=== PATIENT | female | born 1965 | race Caucasian/White ===

== ENCOUNTER → 2016-10-13 | Outpatient (REF) | payer BC ==
[2016-10-13 12:26] LABS: BASO % 0.6 % (0.0-1.0); EOS # 0.1 K/mm3 (0.0-0.50); EOS % 2.3 % (0.0-3.0); LARGE UNSTAINED CELL # 0.1 K/mm3 (0.0-0.4); LARGE UNSTAINED CELL % 2.3 % (0.0-4.0); LYMPH # 1.8 K/mm3 (1.5-4.5); LYMPH % 31.1 % (24.0-44.0); MEAN CORPUSCULAR HEMOGLOBIN 32.7 pg (27.0-33.0); MEAN CORPUSCULAR HGB CONC 34.3 g/dl (32.0-36.5); MEAN CORPUSCULAR VOLUME 95.3 fl (80.0-96.0); MONO # 0.4 K/mm3 (0.0-0.8); NEUTROPHILS % 55.7 % (36.0-66.0); PLATELET COUNT, AUTOMATED 168 k/mm3 (150-450); RED CELL DISTRIBUTION WIDTH 12.6 % (11.5-14.5); WHITE BLOOD COUNT 5.3 K/mm3 (4.0-10.0)
== END ==
LOC: M SFHCPLAZ 08:07
PROVIDERS: ATTEND Nurse Practitioner Family
DX: R58 Hemorrhage, not elsewhere classified (principal); D50.9 Iron deficiency anemia, unspecified

== ENCOUNTER → 2017-01-16 | Day surgery (SDC) | payer BC ==
[~2017-01-16] VITALS: Ht 170.2 cm; Wt 88.9 kg
[~2017-01-16] MED LIST: AMIT10TA PO; BUPIVACAINE HCL 0.5% 30 ML VIAL As Ordered ONE; CALC600T31 PO; CYMB1CAP5 PO; GABA600T PO; IRON65TA PO; LIDOCAINE 1% MDV 20ML VIAL As Ordered ONE; LIDOCAINE 2% INJ 100 MG/5 ML SDV (FOR ANES.) As Ordered ONE; LORA10TA2 PO; LR 1,000 ML IV ONE; METH75TA PO; MIDAZOLAM INJ 2 MG/2 ML VIAL (J2250) As Ordered ONE; MULT1TAB19 PO; OMEP40CA2 PO; ONDANSETRON 4MG/2ML VIAL (J2405) As Ordered ONE; POTA99TA PO; PROPOFOL 200 MG/20 ML VIAL As Ordered ONE; TRAM50TA2 PO; VITA100067 PO; VITA100T20 PO; VITA500C24 PO; dexameTHASONE 4 MG/ML 1ML VIAL (J1100) As Ordered ONE; fentaNYL 100 MCG/2 ML INJECTION (J3010) As Ordered ONE
[2017-01-16 14:50] VITALS: BP 120/76
--- NOTE | 2017-01-17 08:22 | RO ---
DATE OF PROCEDURE: 01/16/2017 PREPROCEDURE DIAGNOSIS: Left foot plantar fasciitis. POSTPROCEDURE DIAGNOSIS: Left foot plantar fasciitis. PROCEDURE: Left foot endoscopic plantar fascia release. SURGEON: Clay Cannon DPM BOTTOM TURNING LATHE TURNER: None. HEMOSTASIS: Ankle tourniquet. MATERIALS: #4-0 Nylon. ANESTHESIA: Monitored anesthesia care with preoperative injection of 13 mL of 1:1 mixture of 1% lidocaine plain and 0.5% Marcaine plain. ESTIMATED BLOOD LOSS: Minimal. INJECTABLE: 1 mL Decadron 4 mg/mL. COMPLICATIONS: None. CONDITION: Stable. Dayanna Horn is a 51-year-old female who presented to [facility] with complaints of painful plantar fasciitis to her left foot. She has tried numerous conservative therapies without relief. She presents today for surgical correction. The patient side and site were identified and marked in the preoperative holding area. Consent was reviewed and obtained. All risks, complications and alternatives to the procedure were explained to the patient's in detail and all questions were answered. DESCRIPTION OF PROCEDURE: The patient was brought to the operating room and placed on the operating room table in supine position. Monitored anesthesia care was delivered by the anesthesia team. Preoperative injection of 13 mL of 1:1 mixture of 1% lidocaine plain and 0.5% Marcaine plain were injected to the left foot. The left foot was prepped and draped in a normal sterile fashion. Tourniquet was applied to the left ankle and inflated to 250 mmHg. Incision was made at the medial heel with #15 blade. Hemostat was used to create and plane for the trocar. The trocar and cannula were inserted from medial to lateral and a small stab incision was made to the lateral heel creating the lateral portal. Trocar was removed. The cannula was cleaned with cotton applicator. The camera was inserted into the lateral portal. Plantar fascia was visualized and released using the Endotrac blade two-thirds of the way across medial to lateral. The lateral one-third was left intact. Site was irrigated with normal saline. Cannula was removed. #4-0 Nylon was used to close the incisions. Sterile dressings were applied. Tourniquet was deflated. The patient was brought to post anesthesia care unit (PACU) with vital signs stable and neurovascular status intact. She will be weightbearing as tolerated in postoperative shoe. She will followup in the office in two days.
== END | disposition home or self-care (01) ==
LOC: M SDC 10:54
PROVIDERS: ATTEND Podiatrist Foot & Ankle Surgery
DX: M72.2 Plantar fascial fibromatosis (principal); M54.5 Low back pain; G89.29 Other chronic pain; E11.9 Type 2 diabetes mellitus without complications; F32.9 Major depressive disorder, single episode, unspecified; K21.9 Gastro-esophageal reflux disease without esophagitis; E78.5 Hyperlipidemia, unspecified; D50.9 Iron deficiency anemia, unspecified; E66.9 Obesity, unspecified; M79.7 Fibromyalgia; M47.812 Spondylosis without myelopathy or radiculopathy, cervical region; Z88.5 Allergy status to narcotic agent; Z79.899 Other long term (current) drug therapy; Z98.84 Bariatric surgery status; Z98.1 Arthrodesis status; Z98.51 Tubal ligation status; Z78.0 Asymptomatic menopausal state
CPT/HCPCS: 29893; J0690; J1100; J2250; J2405; J3010

== ENCOUNTER → 2017-07-18 | Outpatient (REF) | payer BC, MEDICARE ==
[2017-07-18 11:28] LABS: BASO % 0.6 % (0.0-1.0); EOS # 0.1 10^3/uL (0.0-0.50); EOS % 2.4 % (0.0-3.0); HEMATOCRIT 43.6 % (36.0-47.0); HEMOGLOBIN 14.8 g/dl (12.0-16.0); IMMATURE GRANULOCYTE % 0.2 % (0-0); LYMPH # 1.6 10^3/uL (1.5-4.5); LYMPH % 33.8 % (24.0-44.0); MEAN CORPUSCULAR HEMOGLOBIN 32.1 pg (27.0-33.0); MEAN CORPUSCULAR HGB CONC 33.9 g/dl (32.0-36.5); MEAN CORPUSCULAR VOLUME 94.6 fl (80.0-96.0); MONO # 0.5 10^3/uL (0.0-0.8); NEUTROPHILS # 2.5 10^3/uL (1.8-7.7); PLATELET COUNT, AUTOMATED 210 10^3/uL (150-450); RED BLOOD COUNT 4.61 10^6/uL (4.00-5.40); RED CELL DISTRIBUTION WIDTH 11.9 % (11.5-14.5); WHITE BLOOD COUNT 4.6 10^3/uL (4.0-10.0)
[2017-07-18 12:01] LABS: ESTIMATED AVERAGE GLUCOSE 123 MG/DL (60-110); HEMOGLOBIN A1c 5.9 %
[2017-07-18 12:08] LABS: ALBUMIN 4.1 GM/DL (3.2-5.2); ALBUMIN/GLOBULIN RATIO 1.46 (1.00-1.93); ALKALINE PHOSPHATASE 85 U/L (45-117); ALT/SGPT 28 U/L (12-78); ANION GAP 6 MEQ/L (8-16); AST/SGOT 16 U/L (7-37); BILIRUBIN,TOTAL 0.4 MG/DL (0.2-1.0); BLOOD UREA NITROGEN 14 MG/DL (7-18); CALCIUM LEVEL 9.1 MG/DL (8.5-10.1); CARBON DIOXIDE LEVEL 31 MEQ/L (21-32); CHLORIDE LEVEL 106 MEQ/L (98-107); CHOLESTEROL LEVEL 225 MG/DL (<200); CHOLESTEROL RISK RATIO 3.688 (<5); CREATININE FOR GFR 0.63 MG/DL (0.55-1.02); GLOMERULAR FILTRATION RATE > 60.0 (>51); GLUCOSE, FASTING 108 MG/DL (70-105); HDL CHOLESTEROL 61 MG/DL (>40); IRON (FE) 132 UG/DL (50-170); NON-HDL-C 164 MG/DL; POTASSIUM SERUM 4.2 MEQ/L (3.5-5.1); SODIUM LEVEL 143 MEQ/L (136-145); TOTAL PROTEIN 6.9 GM/DL (6.4-8.2); TRIGLYCERIDES LEVEL 85 MG/DL (<150)
== END ==
LOC: M SFHCCLAY 09:28
DX: D50.9 Iron deficiency anemia, unspecified (principal); E11.9 Type 2 diabetes mellitus without complications; I10 Essential (primary) hypertension; N76.0 Acute vaginitis; Z12.4 Encounter for screening for malignant neoplasm of cervix
CPT/HCPCS: 83540

== ENCOUNTER → 2017-08-15 | Outpatient (REF) | payer BC, MEDICARE | LOC: M SFHCCLAY 13:33 | DX: Z11.59 Encounter for screening for other viral diseases (principal) | CPT/HCPCS: 86803 ==

== ENCOUNTER → 2018-03-27 | Outpatient (REF) | payer BC, MEDICARE | LOC: M SFHCCLAY 13:43 | DX: R39.15 Urgency of urination (principal) | CPT/HCPCS: 87088; 87186 ==

== ENCOUNTER → 2018-08-15 | Outpatient (REF) | payer MEDICARE, BC ==
[~2018-08-15] MED LIST changes: -BUPIVACAINE HCL 0.5% 30 ML VIAL As Ordered ONE; -GABA600T PO; +GABA600T4 PO; -LIDOCAINE 1% MDV 20ML VIAL As Ordered ONE; -LIDOCAINE 2% INJ 100 MG/5 ML SDV (FOR ANES.) As Ordered ONE; +LORA-243 PO; -LORA10TA2 PO; -LR 1,000 ML IV ONE; -MIDAZOLAM INJ 2 MG/2 ML VIAL (J2250) As Ordered ONE; -ONDANSETRON 4MG/2ML VIAL (J2405) As Ordered ONE; -PROPOFOL 200 MG/20 ML VIAL As Ordered ONE; -dexameTHASONE 4 MG/ML 1ML VIAL (J1100) As Ordered ONE; -fentaNYL 100 MCG/2 ML INJECTION (J3010) As Ordered ONE
[2018-08-15 11:39] LABS: BASO % 0.4 % (0.0-1.0); EOS # 0.2 10^3/uL (0.0-0.50); EOS % 2.8 % (0.0-3.0); HEMATOCRIT 43.2 % (36.0-47.0); HEMOGLOBIN 14.5 g/dl (12.0-15.5); LYMPH # 1.7 10^3/uL (1.5-4.5); LYMPH % 32.9 % (24.0-44.0); MEAN CORPUSCULAR HEMOGLOBIN 31.9 pg (27.0-33.0); MEAN CORPUSCULAR HGB CONC 33.6 g/dl (32.0-36.5); MEAN CORPUSCULAR VOLUME 94.9 fl (80.0-96.0); MONO # 0.5 10^3/uL (0.0-0.8); MONO % 9.6 % (0.0-5.0); NEUTROPHILS # 2.9 10^3/uL (1.8-7.7); NEUTROPHILS % 54.1 % (36.0-66.0); PLATELET COUNT, AUTOMATED 176 10^3/uL (150-450); RED BLOOD COUNT 4.55 10^6/uL (4.00-5.40); WHITE BLOOD COUNT 5.3 10^3/uL (4.0-10.0)
[2018-08-15 12:12] LABS: ALT/SGPT 25 U/L (12-78); BILIRUBIN,TOTAL 0.5 MG/DL (0.2-1.0); BLOOD UREA NITROGEN 17 MG/DL (7-18); CARBON DIOXIDE LEVEL 27 MEQ/L (21-32); CHLORIDE LEVEL 107 MEQ/L (98-107); CHOLESTEROL LEVEL 200 MG/DL (<200); CHOLESTEROL RISK RATIO 3.508 (<5); CREATININE FOR GFR 0.66 MG/DL (0.55-1.30); GLOMERULAR FILTRATION RATE > 60.0 (>51); GLUCOSE, FASTING 127 MG/DL (70-100); HDL CHOLESTEROL 57 MG/DL (>40); LDL CHOLESTEROL 127 MG/DL (<100); NON-HDL-C 143 MG/DL; POTASSIUM SERUM 4.2 MEQ/L (3.5-5.1); SODIUM LEVEL 142 MEQ/L (136-145); TOTAL PROTEIN 6.6 GM/DL (6.4-8.2); TRIGLYCERIDES LEVEL 82 MG/DL (<150)
[2018-08-15 12:43] LABS: HEMOGLOBIN A1c 6.1 %
[2018-08-15 16:26] LABS: APPEARANCE, URINE CLOUDY (CLEAR); BACTERIA, URINE AUTO NEGATIVE (NEGATIVE); BILIRUBIN, URINE AUTO 2+ (NEGATIVE); BLOOD, URINE BLOOD NEGATIVE (NEGATIVE); CALCIUM OXALATE CRYSTALS MODERATE; COLOR, URINE AMBER (YELLOW); GLUCOSE, URINE (UA) AUTO NEGATIVE (NEGATIVE); KETONE, URINE AUTO NEGATIVE (NEGATIVE); LEUKOCYTE ESTERASE, URINE AUTO TRACE (NEGATIVE); MUCUS, URINE SMALL (NEGATIVE); NITRITE, URINE AUTO NEGATIVE (NEGATIVE); PROTEIN, URINE AUTO NEGATIVE (NEGATIVE); RBC, URINE AUTO 0 /HPF (0-3); SPECIFIC GRAVITY URINE AUTO 1.031 (1.002-1.035); SQUAMOUS EPITHELIAL CELL UR AU 9 /HPF (0-6); WBC, URINE AUTO 5 /HPF (0-3)
== END ==
LOC: M SFHCCLAY 09:02
PROVIDERS: ATTEND Nurse Practitioner Family
DX: E11.9 Type 2 diabetes mellitus without complications (principal); I10 Essential (primary) hypertension

== ENCOUNTER → 2019-03-19 | Outpatient (REF) | payer MEDICARE, BC ==
[~2019-03-19] MED LIST changes: +METH750T2 PO; -METH75TA PO; -VITA100T20 PO; +VITA100T51 PO
[2019-03-19 18:29] LABS: BASO % 0.8 % (0.0-1.0); EOS # 0.1 10^3/uL (0.0-0.5); EOS % 2.3 % (0.0-3.0); HEMATOCRIT 43.7 % (36.0-47.0); HEMOGLOBIN 14.7 g/dl (12.0-15.5); LYMPH # 1.6 10^3/uL (1.5-5.0); LYMPH % 31.5 % (24.0-44.0); MEAN CORPUSCULAR HEMOGLOBIN 32.8 pg (27.0-33.0); MEAN CORPUSCULAR HGB CONC 33.6 g/dl (32.0-36.5); MEAN CORPUSCULAR VOLUME 97.5 fl (80.0-96.0); MONO # 0.5 10^3/uL (0.0-0.8); MONO % 9.3 % (0.0-5.0); NEUTROPHILS # 2.9 10^3/uL (1.5-8.5); NEUTROPHILS % 55.7 % (36.0-66.0); PLATELET COUNT, AUTOMATED 201 10^3/uL (150-450); RED BLOOD COUNT 4.48 10^6/uL (4.00-5.40); WHITE BLOOD COUNT 5.2 10^3/uL (4.0-10.0)
[2019-03-19 18:39] LABS: ALBUMIN 4.1 GM/DL (3.2-5.2); ALT/SGPT 21 U/L (12-78); BILIRUBIN,TOTAL 0.5 MG/DL (0.2-1.0); BLOOD UREA NITROGEN 16 MG/DL (7-18); CALCIUM LEVEL 9.3 MG/DL (8.5-10.1); CARBON DIOXIDE LEVEL 26 MEQ/L (21-32); CHLORIDE LEVEL 108 MEQ/L (98-107); CHOLESTEROL LEVEL 196 MG/DL (<200); CHOLESTEROL RISK RATIO 3.266 (<5); CREATININE FOR GFR 0.61 MG/DL (0.55-1.30); GLOMERULAR FILTRATION RATE > 60.0 (>51); GLUCOSE, FASTING 108 MG/DL (70-100); HDL CHOLESTEROL 60 MG/DL (>40); LDL CHOLESTEROL 118 MG/DL (<100); NON-HDL-C 136 MG/DL; POTASSIUM SERUM 4.3 MEQ/L (3.5-5.1); SODIUM LEVEL 142 MEQ/L (136-145); TOTAL PROTEIN 6.9 GM/DL (6.4-8.2); TRIGLYCERIDES LEVEL 90 MG/DL (<150)
[2019-03-19 19:30] LABS: HEMOGLOBIN A1c 5.8 %
== END ==
LOC: M SFHCCLAY 09:27
PROVIDERS: ATTEND Nurse Practitioner Family
DX: E11.9 Type 2 diabetes mellitus without complications (principal); I10 Essential (primary) hypertension; M54.9 Dorsalgia, unspecified
CPT/HCPCS: 80053; 80061; 83036; 85025; G0463

== ENCOUNTER → 2020-02-19 | Outpatient (REF) | payer MEDICARE, BC ==
[~2020-02-19] MED LIST changes: -OMEP40CA2 PO; +OMEP40CA97 PO
[2020-03-22 11:53] LABS: MUMPS VIRUS IgG ANTIBODY SEE SEPARATE REPORT (NEGATIVE); RUBEOLA IgG ANTIBODY SEE SEPARATE REPORT
== END ==
LOC: M SFHCCLAY 09:44
PROVIDERS: ATTEND Nurse Practitioner Family
DX: Z01.84 Encounter for antibody response examination (principal)

== ENCOUNTER → 2021-05-03 | Outpatient (REF) | payer MEDICARE, BC ==
[~2021-05-03] MED LIST changes: -AMIT10TA PO; +AMIT10TA7 PO; +METH-1165 PO; -METH750T2 PO; +OMEP40CA4 PO; -OMEP40CA97 PO
== END ==
LOC: M SFHCCLAY 11:41
PROVIDERS: ATTEND Nurse Practitioner Family
DX: Z01.419 Encounter for gynecological examination (general) (routine) without abnormal findings (principal)

== ENCOUNTER → 2021-07-14 | Outpatient (CLI) | payer MEDICARE, BC ==
--- NOTE | 2021-07-14 10:47 | REP ---
INDICATION: R50.9, FEVER COMPARISON: None. TECHNIQUE: PA and lateral. FINDINGS: The mediastinum and cardiac silhouette are normal. Are relatively clear. However, a very subtle area of opacity in the retrocardiac/medial left lower lobe cannot be excluded and should be correlated with auscultation. No effusion. No pneumothorax. Skeletal structures demonstrate chronic scoliosis and degenerative changes. IMPRESSION: Cannot exclude very subtle medial left lower lobe airspace disease. Clinical correlation is recommended. No focal consolidation or effusion. <Electronically signed by Tyree Florez > 07/14/21 [id number]
== END ==
LOC: M CLY 10:21
PROVIDERS: ATTEND Physician Assistant
DX: R50.9 Fever, unspecified (principal)

== ENCOUNTER → 2021-10-12 | Outpatient (REF) | payer MEDICARE, BC ==
[2021-10-12 12:45] LABS: BASO % 0.5 % (0.0-1.0); EOS # 0.2 10^3/uL (0.0-0.5); EOS % 2.2 % (0.0-3.0); HEMATOCRIT 42.5 % (36.0-47.0); HEMOGLOBIN 14.1 g/dl (12.0-15.5); LYMPH # 1.8 10^3/uL (1.5-5.0); LYMPH % 23.2 % (24.0-44.0); MEAN CORPUSCULAR HEMOGLOBIN 31.1 pg (27.0-33.0); MEAN CORPUSCULAR HGB CONC 33.2 g/dl (32.0-36.5); MEAN CORPUSCULAR VOLUME 93.6 fl (80.0-96.0); MONO # 0.7 10^3/uL (0.0-0.8); MONO % 9.1 % (2.0-8.0); NEUTROPHILS % 64.7 % (36.0-66.0); PLATELET COUNT, AUTOMATED 217 10^3/uL (150-450); RED BLOOD COUNT 4.54 10^6/uL (4.00-5.40); WHITE BLOOD COUNT 7.7 10^3/uL (4.0-10.0)
[2021-10-12 13:18] LABS: HEMOGLOBIN A1c 6.3 %
[2021-10-12 13:30] LABS: ALT/SGPT 33 U/L (12-78); BILIRUBIN,TOTAL 0.3 MG/DL (0.2-1.0); BLOOD UREA NITROGEN 12 MG/DL (7-18); CALCIUM LEVEL 9.6 MG/DL (8.5-10.1); CARBON DIOXIDE LEVEL 30 MEQ/L (21-32); CHLORIDE LEVEL 109 MEQ/L (98-107); CHOLESTEROL LEVEL 233 MG/DL (<200); CREATININE FOR GFR 0.77 MG/DL (0.55-1.30); FREE T4 0.92 NG/DL (0.76-1.46); GLOMERULAR FILTRATION RATE > 60.0 (>51); GLUCOSE, FASTING 144 MG/DL (70-100); HDL CHOLESTEROL 56 MG/DL (>40); LDL CHOLESTEROL 148 MG/DL (<100); NON-HDL-C 177 MG/DL; POTASSIUM SERUM 4.7 MEQ/L (3.5-5.1); SODIUM LEVEL 141 MEQ/L (136-145); TRIGLYCERIDES LEVEL 144 MG/DL (<150)
== END ==
LOC: M SFHCCLAY 08:05
PROVIDERS: ATTEND Nurse Practitioner Family
DX: D50.9 Iron deficiency anemia, unspecified (principal); E11.9 Type 2 diabetes mellitus without complications; I10 Essential (primary) hypertension
CPT/HCPCS: 80053; 80061; 83036; 84439; 84443; 85025; G0463

== ENCOUNTER → 2021-11-04 | Outpatient (REF) | payer MEDICARE, BC | LOC: M SFHCCLAY 14:44 | PROVIDERS: ATTEND Nurse Practitioner Family | DX: R30.0 Dysuria (principal) ==

== ENCOUNTER → 2021-11-16 | Outpatient (CLI) | payer MEDICARE, BC | LOC: M SOG 08:02 | PROVIDERS: ATTEND Physician Assistant | DX: M25.532 Pain in left wrist (principal) ==

== ENCOUNTER → 2022-01-02 | Outpatient (CLI) | payer MEDICARE, BC ==
[~2022-01-02] MED LIST changes: +CYAN500T14 PO; +MELO15TA28 PO; +VITA-243 PO; +VITA100093 PO; +VITMTA PO
== END ==
LOC: M LABSMTC 10:43
PROVIDERS: ATTEND Anesthesiology
DX: Z01.812 Encounter for preprocedural laboratory examination (principal); Z20.822 Contact with and (suspected) exposure to COVID-19

== ENCOUNTER 2022-01-05 08:52 | Day surgery (SDC) | payer MEDICARE, BC ==
[~2022-01-05] VITALS: Ht 170.2 cm; Wt 106.5 kg
[~2022-01-05 08:52] MED LIST changes: +LIDOCAINE W/EPINEPHRINE 1% 20ML VIAL XX ONE; +SODIUM BICARBONATE 8.4% INJ 50MEQ 50 ML VIAL XX ONE
[2022-01-05] MEDS ORDERED: TRAM50TA2 PO (12:00)
[2022-01-05 12:05] VITALS: BP 130/85
== END 2022-01-05 12:05 | disposition home or self-care (01) ==
LOC: M SDC 08:52
PROVIDERS: ATTEND Orthopaedic Surgery Hand Surgery
DX: M65.4 Radial styloid tenosynovitis [de Quervain] (principal); J45.909 Unspecified asthma, uncomplicated; K21.9 Gastro-esophageal reflux disease without esophagitis; M79.7 Fibromyalgia; F41.9 Anxiety disorder, unspecified; F32.A Depression, unspecified; Z87.891 Personal history of nicotine dependence; Z88.5 Allergy status to narcotic agent; Z79.899 Other long term (current) drug therapy

== ENCOUNTER → 2022-01-26 | Outpatient (CLI) | payer MEDICARE, BC ==
[~2022-01-26] MED LIST changes: -LIDOCAINE W/EPINEPHRINE 1% 20ML VIAL XX ONE; -SODIUM BICARBONATE 8.4% INJ 50MEQ 50 ML VIAL XX ONE
== END ==
LOC: M SOG 08:07
PROVIDERS: ATTEND Orthopaedic Surgery Adult Reconstructive Orthopaedic Surgery
DX: M25.551 Pain in right hip (principal); M16.11 Unilateral primary osteoarthritis, right hip; Z98.1 Arthrodesis status

== ENCOUNTER → 2022-04-01 | Outpatient (CLI) | payer MEDICARE, BC, OTHER ==
[~2022-04-01] MED LIST changes: +BUPIVACAINE HCL 0.5% 30ML VIAL As Ordered ONE; +ISOVUE-300 61% 50ML VIAL As Ordered ONE; +LIDOCAINE 1% MDV 20ML VIAL As Ordered ONE; +methylPREDNISolone 80MG/ML SUSP 1ML VIAL (J1040) As Ordered ONE
== END ==
LOC: M RAD 10:44
PROVIDERS: ATTEND Orthopaedic Surgery Adult Reconstructive Orthopaedic Surgery
DX: M25.851 Other specified joint disorders, right hip (principal)
CPT/HCPCS: 20610; 76000; J1040; Q9967

== ENCOUNTER → 2022-08-15 | Outpatient (REF) | payer BC, OTHER ==
[~2022-08-15] MED LIST changes: -BUPIVACAINE HCL 0.5% 30ML VIAL As Ordered ONE; -ISOVUE-300 61% 50ML VIAL As Ordered ONE; -LIDOCAINE 1% MDV 20ML VIAL As Ordered ONE; -methylPREDNISolone 80MG/ML SUSP 1ML VIAL (J1040) As Ordered ONE
[2022-08-15 17:37] LABS: BASO % 0.6 % (0.0-1.0); EOS # 0.2 10^3/uL (0.0-0.5); EOS % 3.1 % (0.0-3.0); HEMOGLOBIN 13.7 g/dl (12.0-15.5); LYMPH # 2.2 10^3/uL (1.5-5.0); LYMPH % 31.1 % (24.0-44.0); MEAN CORPUSCULAR HEMOGLOBIN 31.3 pg (27.0-33.0); MEAN CORPUSCULAR HGB CONC 32.6 g/dl (32.0-36.5); MEAN CORPUSCULAR VOLUME 95.9 fl (80.0-96.0); MONO # 0.8 10^3/uL (0.0-0.8); MONO % 11.3 % (2.0-8.0); NEUTROPHILS # 3.8 10^3/uL (1.5-8.5); NEUTROPHILS % 53.6 % (36.0-66.0); PLATELET COUNT, AUTOMATED 224 10^3/uL (150-450); RED BLOOD COUNT 4.38 10^6/uL (4.00-5.40); WHITE BLOOD COUNT 7.1 10^3/uL (4.0-10.0)
[2022-08-15 17:54] LABS: ALKALINE PHOSPHATASE 91 U/L (46-116); ALT/SGPT 21 U/L (7.0-40); AST/SGOT 21 U/L (<34); BILIRUBIN,TOTAL 0.2 MG/DL (0.3-1.2); BLOOD UREA NITROGEN 22 MG/DL (9-23); CALCIUM LEVEL 9.4 MG/DL (8.5-10.1); CARBON DIOXIDE LEVEL 30 MMOL/L (20-31); CHLORIDE LEVEL 105 MMOL/L (98-107); CHOLESTEROL LEVEL 208 MG/DL (<200); CREATININE FOR GFR 0.58 MG/DL (0.55-1.30); GLOMERULAR FILTRATION RATE > 60.0 (>51); GLUCOSE, FASTING 91 MG/DL (60-100); HDL CHOLESTEROL 56.2 MG/DL (>40); IRON (FE) 64 UG/DL (50-170); LDL CHOLESTEROL 121.4 MG/DL (<100); NON-HDL-C 152 MG/DL; POTASSIUM SERUM 5.2 MMOL/L (3.5-5.1); SODIUM LEVEL 140 MMOL/L (136-145); THYROID STIMULATING HORMONE 2.024 uIU/ML (0.55-4.78); TOTAL PROTEIN 6.9 G/DL (5.7-8.2); TRIGLYCERIDES LEVEL 152 MG/DL (<150)
[2022-08-15 17:55] LABS: FREE T4 1.02 NG/DL (0.89-1.76); VITAMIN B12 LEVEL 631 PG/ML (211-911)
[2022-08-15 17:56] LABS: FOLATE 21.23 NG/ML (>5.4)
== END ==
LOC: M SFHCCLAY 14:20
PROVIDERS: ATTEND Nurse Practitioner Family
DX: E11.9 Type 2 diabetes mellitus without complications (principal); D50.9 Iron deficiency anemia, unspecified; I10 Essential (primary) hypertension; N39.0 Urinary tract infection, site not specified; E66.01 Morbid (severe) obesity due to excess calories; Z68.38 Body mass index [BMI] 38.0-38.9, adult; R25.2 Cramp and spasm

== ENCOUNTER → 2022-08-19 | Outpatient (CLI) | payer BC, OTHER | LOC: M PLAIMG 13:13 | PROVIDERS: ATTEND Orthopaedic Surgery Adult Reconstructive Orthopaedic Surgery | DX: M16.31 Unilateral osteoarthritis resulting from hip dysplasia, right hip (principal) ==

== ENCOUNTER → 2022-11-06 | Outpatient (REF) | payer BC, OTHER | LOC: M LAB REF 08:19 | PROVIDERS: ATTEND Physician Assistant Medical | DX: J02.9 Acute pharyngitis, unspecified (principal) ==

== ENCOUNTER → 2023-03-30 | Outpatient (CLI) | payer OTHER, BC ==
[2023-03-30 14:48] LABS: BASO # 0.1 10^3/uL (0.0-0.2); BASO % 0.8 % (0.0-1.0); EOS # 0.2 10^3/uL (0.0-0.5); EOS % 2.5 % (0.0-3.0); HEMATOCRIT 40.6 % (36.0-47.0); HEMOGLOBIN 13.6 g/dl (12.0-15.5); LYMPH % 31.3 % (24.0-44.0); MEAN CORPUSCULAR HEMOGLOBIN 31.4 pg (27.0-33.0); MEAN CORPUSCULAR HGB CONC 33.5 g/dl (32.0-36.5); MEAN CORPUSCULAR VOLUME 93.8 fl (80.0-96.0); MONO # 0.7 10^3/uL (0.0-0.8); MONO % 10.8 % (2.0-8.0); NEUTROPHILS # 3.4 10^3/uL (1.5-8.5); NEUTROPHILS % 54.3 % (36.0-66.0); PLATELET COUNT, AUTOMATED 210 10^3/uL (150-450); RED BLOOD COUNT 4.33 10^6/uL (4.00-5.40); WHITE BLOOD COUNT 6.3 10^3/uL (4.0-10.0)
[2023-03-30 15:15] LABS: ALBUMIN 3.9 G/DL (3.2-5.2); ALKALINE PHOSPHATASE 92 U/L (46-116); ALT/SGPT 23 U/L (7.0-40); AST/SGOT 15 U/L (<34); BILIRUBIN,TOTAL 0.2 MG/DL (0.3-1.2); BLOOD UREA NITROGEN 17 MG/DL (9-23); CALCIUM LEVEL 9.1 MG/DL (8.5-10.1); CARBON DIOXIDE LEVEL 28 MMOL/L (20-31); CHLORIDE LEVEL 107 MMOL/L (98-107); CREATININE FOR GFR 0.53 MG/DL (0.55-1.30); GLOMERULAR FILTRATION RATE > 60.0 (>51); GLUCOSE, FASTING 115 MG/DL (60-100); POTASSIUM SERUM 4.3 MMOL/L (3.5-5.1); SODIUM LEVEL 140 MMOL/L (136-145); TOTAL PROTEIN 6.7 G/DL (5.7-8.2)
[2023-03-30 15:18] LABS: TOTAL 25(OH) VITAMIN D 28.8 NG/ML (20.0-100.0)
[2023-03-30 15:45] LABS: HEMOGLOBIN A1c 5.9 % (4.0-6.0)
== END ==
LOC: M LAB 14:16
PROVIDERS: ATTEND Orthopaedic Surgery
DX: M16.11 Unilateral primary osteoarthritis, right hip (principal); Z79.899 Other long term (current) drug therapy; M25.551 Pain in right hip

== ENCOUNTER → 2023-03-30 | Outpatient (CLI) | payer MEDICARE, BC | LOC: M SOG 09:11 | PROVIDERS: ATTEND Orthopaedic Surgery | DX: M25.551 Pain in right hip (principal); M16.11 Unilateral primary osteoarthritis, right hip ==

== ENCOUNTER → 2023-04-21 | Outpatient (CLI) | payer OTHER, BC | LOC: M SOG 07:51 | PROVIDERS: ATTEND Orthopaedic Surgery | DX: M54.50 Low back pain, unspecified (principal); M16.11 Unilateral primary osteoarthritis, right hip; M41.85 Other forms of scoliosis, thoracolumbar region; M46.06 Spinal enthesopathy, lumbar region ==

== ENCOUNTER 2023-04-27 10:25 | Outpatient (RCR) | payer OTHER, BC ==
[2023-05-05] MEDS ORDERED: PRENTAB53 PO (11:06)
[2023-05-05] MEDS ORDERED: ALBU8.5H (11:10)
== END 2023-05-09 ==
LOC: M PT 10:25
PROVIDERS: ATTEND Orthopaedic Surgery
DX: M16.11 Unilateral primary osteoarthritis, right hip (principal)

== ENCOUNTER → 2023-05-11 | Outpatient (CLI) | payer OTHER, BC ==
[~2023-05-11] MED LIST changes: +ALBU8.5H; +PRENTAB53 PO
== END ==
LOC: M RAD 15:41
PROVIDERS: ATTEND Orthopaedic Surgery
DX: M16.11 Unilateral primary osteoarthritis, right hip (principal)

== ENCOUNTER 2023-05-16 09:15 | Observation (INO) | payer OTHER, BC ==
[~2023-05-16] VITALS: Ht 167.6 cm; Wt 108.0 kg
[~2023-05-16 09:15] MED LIST changes: -ALBU8.5H; +ALBU8.5H INH; +ROPIVA 100MG/KETOR 15MG/EPINEPHRINE 0.3MG IN NS 50ML SYRINGE PA ONE; +TRANEXAMIC ACID INJection 1,000 MG in NS 100 ML IV ONE; +ceFAZolin SOD 2 GM in IV 1 EA IV ONE
[2023-05-16] MEDS ORDERED: OMEP40CA5 PO (10:12)
[2023-05-16] MEDS ORDERED: VITA100093 PO (10:12)
[2023-05-16] MEDS ORDERED: MUPI2OI NARES (10:12)
[2023-05-16] MEDS ORDERED: DULO30CA9 PO (10:12)
[2023-05-16] MEDS ORDERED: MELO15TA28 PO (10:12)
[2023-05-16] MEDS ORDERED: DULO60CA35 PO (10:12)
[2023-05-16] MEDS ORDERED: LORA-931 PO (10:12)
[2023-05-16] MEDS ORDERED: C 50TAB PO (10:12)
[2023-05-16] MEDS ORDERED: HOME MED LIST COMPLETE! XX SCH (10:15)
[2023-05-16] MEDS ORDERED: TRANEXAMIC ACID 100 MG/ML 10ML VIAL As Ordered ONE (12:23)
[2023-05-16] MEDS ORDERED: VANCOMYCIN 1000MG/20ML VIAL As Ordered ONE (12:23)
[2023-05-16] MEDS ORDERED: SUGAMMADEX SODIUM 500 MG/5 ML VIAL (BRIDION) As Ordered ONE (12:49)
[2023-05-16] MEDS ORDERED: METOCLOPRAMIDE INJ 10MG/2ML VIAL As Ordered ONE (12:49)
[2023-05-16] MEDS ORDERED: LIDOCAINE 2% 100MG/5ML SDV (FOR ANES.) As Ordered ONE ×2 (12:49→16:43)
[2023-05-16] MEDS ORDERED: propofoL 200 MG/20 ML VIAL As Ordered ONE (12:49)
[2023-05-16] MEDS ORDERED: MIDAZOLAM INJ 2MG/2ML VIAL As Ordered ONE ×2 (12:49→16:55)
[2023-05-16] MEDS ORDERED: dexmedeTOMIDine (4MCG/ML)200MCG/50ML BTL (PRECEDEX) As Ordered ONE (12:49)
[2023-05-16] MEDS ORDERED: ROCURONIUM BROMIDE 50MG/5ML VIAL As Ordered ONE ×4 (12:49→16:43)
[2023-05-16] MEDS ORDERED: fentaNYL 250 MCG/5 ML INJECTION As Ordered ONE (12:49)
[2023-05-16] MEDS ORDERED: ONDANSETRON 4MG 2ML VIAL As Ordered ONE (12:49)
[2023-05-16] MEDS ORDERED: PHENYLephrine 500MCG 5ML (100MCG/ML) SYRINGE As Ordered ONE (13:20)
[2023-05-16] MEDS ORDERED: HYDROmorphone HCL 2MG/ML 1ML VIAL As Ordered ONE (15:10)
[2023-05-16] MEDS ORDERED: ONDANSETRON 4MG 2ML VIAL IV PRN ×2 (16:05→18:20)
[2023-05-16] MEDS ORDERED: fentaNYL 100 MCG/2 ML INJECTION IV PRN (16:05)
[2023-05-16] MEDS ORDERED: LR 1,000 ML IV SCH ×2 (16:05→18:20)
[2023-05-16] MEDS ORDERED: MEPERIDINE 25 MG/ML 1ML VIAL IV PRN (16:05)
[2023-05-16] MEDS ORDERED: METOCLOPRAMIDE INJ 10MG/2ML VIAL IV PRN (16:05)
[2023-05-16] MEDS ORDERED: diphenhydrAMINE 50MG/ML VIAL IV PRN (16:05)
[2023-05-16] MEDS ORDERED: ceFAZolin 2 GM/D5W 50 ML IV BAG As Ordered ONE (16:38)
[2023-05-16] MEDS ORDERED: VASOPRESSIN INJ 20UNITS/ML 1ML VIAL As Ordered ONE (16:55)
[2023-05-16] MEDS ORDERED: VANCOMYCIN 500MG/10ML VIAL As Ordered ONE (17:14)
[2023-05-16] MEDS ORDERED: CISATRACURIUM 2MG/ML 5ML VIAL As Ordered ONE (17:20)
[2023-05-16] MEDS: ACETAMINOPHEN TAB 650MG DOSE (2X325MG) PO SCH ×3 (18:00→23:31)
[2023-05-16] MEDS ORDERED: NEOSTIGMINE 10MG 10ML VIAL As Ordered ONE (18:15)
[2023-05-16] MEDS ORDERED: GLYCOPYRROLATE INJ 0.2 MG/ML 2 ML VIAL As Ordered ONE (18:16)
[2023-05-16] MEDS ORDERED: SENNA 8.6 MG TAB (SENOKOT) PO PRN (18:20)
[2023-05-16] MEDS ORDERED: ceFAZolin SOD 2 GM in IV 1 EA IV SCH (18:20)
[2023-05-16] MEDS ORDERED: ALBUTEROL 90 MCG/ACT 8GM HFA INHALER INH PRN (18:30)
[2023-05-16] MEDS ORDERED: INSULIN LISPRO (NovoLOG) PER UNIT SC PRN (19:10)
[2023-05-16 20:43] VITALS: BP 138/80; TEMP 97.5; O2SAT 97
[2023-05-16] MEDS ORDERED: ASPIRIN 81MG ENTERIC TABLET PO SCH (21:00)
[2023-05-16 21:38] VITALS: BP 136/90; TEMP 97.3; O2SAT 99
[2023-05-16 22:38] VITALS: BP 134/87; TEMP 97.6; O2SAT 96
[2023-05-16] MEDS: DOCUSATE SODIUM 100MG CAPSULE PO SCH (23:13)
[2023-05-16 23:37] VITALS: BP 132/85; TEMP 97; O2SAT 97
[2023-05-17] MEDS: ceFAZolin SOD 2 GM in IV 1 EA IV SCH ×2 (00:18→05:02)
[2023-05-17] MEDS: oxyCODONE 5MG TAB PO PRN ×5 (00:20→21:03)
[2023-05-17] MEDS: methocarbamoL 750 MG TAB PO SCH ×5 (00:27→21:04)
[2023-05-17 01:40] VITALS: BP 107/65; TEMP 97.9; O2SAT 95
[2023-05-17] MEDS: ACETAMINOPHEN TAB 650MG DOSE (2X325MG) PO SCH ×3 (05:02→16:45)
[2023-05-17] MEDS: CelecoXIB (CeleBREX) 100 MG CAP PO SCH ×2 (05:02→16:44)
[2023-05-17 05:53] VITALS: BP 107/66; TEMP 97.9; O2SAT 96
[2023-05-17 06:18] LABS: HEMOGLOBIN 10.1 g/dl (12.0-15.5); MEAN CORPUSCULAR HGB CONC 33.7 g/dl (32.0-36.5); MEAN CORPUSCULAR VOLUME 94.9 fl (80.0-96.0); PLATELET COUNT, AUTOMATED 183 10^3/uL (150-450); RED BLOOD COUNT 3.16 10^6/uL (4.00-5.40); WHITE BLOOD COUNT 7.3 10^3/uL (4.0-10.0)
[2023-05-17 06:43] LABS: ALBUMIN 2.9 G/DL (3.2-5.2); ALKALINE PHOSPHATASE 116 U/L (46-116); ALT/SGPT 294 U/L (7.0-40); AST/SGOT 334 U/L (<34); BILIRUBIN,TOTAL 0.3 MG/DL (0.3-1.2); BLOOD UREA NITROGEN 17 MG/DL (9-23); CALCIUM LEVEL 8.5 MG/DL (8.5-10.1); CARBON DIOXIDE LEVEL 28 MMOL/L (20-31); CHLORIDE LEVEL 104 MMOL/L (98-107); CREATININE FOR GFR 0.54 MG/DL (0.55-1.30); GLOMERULAR FILTRATION RATE > 60.0 (>51); GLUCOSE, FASTING 149 MG/DL (60-100); POTASSIUM SERUM 4.4 MMOL/L (3.5-5.1); SODIUM LEVEL 139 MMOL/L (136-145); TOTAL PROTEIN 5.1 G/DL (5.7-8.2)
[2023-05-17] MEDS: ASCORBIC ACID 500 MG TAB PO SCH (08:30)
[2023-05-17] MEDS: DULoxetine 30MG CAPSULE (CYMBALTA) PO SCH (08:31)
[2023-05-17] MEDS: VITAMIN D 1,000 INTERNATIONAL UNITS TABLET PO SCH (08:31)
[2023-05-17] MEDS: OMEPRAZOLE 20MG CAP PO SCH (08:31)
[2023-05-17] MEDS: FERROUS SULFATE 325MG TAB PO SCH (08:31)
[2023-05-17] MEDS: DOCUSATE SODIUM 100MG CAPSULE PO SCH ×2 (08:31→21:04)
[2023-05-17] MEDS: LORATADINE 10 MG TAB PO SCH (08:32)
[2023-05-17] MEDS: CEFUROXIME 500 MG TAB PO SCH ×2 (09:57→21:04)
[2023-05-17 14:00] VITALS: BP 125/78; TEMP 97.9; O2SAT 94
[2023-05-17] MEDS ORDERED: RIVAROXABAN 10MG TAB (XARELTO) PO SCH (18:00)
[2023-05-17 20:05] VITALS: BP 126/77; TEMP 97.7; O2SAT 93
[2023-05-18] MEDS: ACETAMINOPHEN TAB 650MG DOSE (2X325MG) PO SCH ×3 (00:14→12:26)
[2023-05-18] MEDS: oxyCODONE 5MG TAB PO PRN ×2 (03:01→08:15)
[2023-05-18 05:45] VITALS: BP 112/73; TEMP 97.9; O2SAT 94
[2023-05-18 05:55] LABS: HEMATOCRIT 28.2 % (36.0-47.0); HEMOGLOBIN 9.3 g/dl (12.0-15.5); MEAN CORPUSCULAR HEMOGLOBIN 31.6 pg (27.0-33.0); MEAN CORPUSCULAR VOLUME 95.9 fl (80.0-96.0); PLATELET COUNT, AUTOMATED 144 10^3/uL (150-450); RED BLOOD COUNT 2.94 10^6/uL (4.00-5.40)
[2023-05-18 06:20] LABS: ALBUMIN 2.8 G/DL (3.2-5.2); ALKALINE PHOSPHATASE 95 U/L (46-116); ALT/SGPT 126 U/L (7.0-40); AST/SGOT 80 U/L (<34); BILIRUBIN,TOTAL 0.4 MG/DL (0.3-1.2); BLOOD UREA NITROGEN 13 MG/DL (9-23); CALCIUM LEVEL 8.6 MG/DL (8.5-10.1); CARBON DIOXIDE LEVEL 30 MMOL/L (20-31); CHLORIDE LEVEL 104 MMOL/L (98-107); CREATININE FOR GFR 0.51 MG/DL (0.55-1.30); GLOMERULAR FILTRATION RATE > 60.0 (>51); GLUCOSE, FASTING 178 MG/DL (60-100); SODIUM LEVEL 139 MMOL/L (136-145); TOTAL PROTEIN 5.3 G/DL (5.7-8.2)
[2023-05-18] MEDS: CelecoXIB (CeleBREX) 100 MG CAP PO SCH (06:32)
[2023-05-18] MEDS: ASCORBIC ACID 500 MG TAB PO SCH (08:12)
[2023-05-18] MEDS: VITAMIN D 1,000 INTERNATIONAL UNITS TABLET PO SCH (08:12)
[2023-05-18] MEDS: LORATADINE 10 MG TAB PO SCH (08:12)
[2023-05-18] MEDS: DULoxetine 30MG CAPSULE (CYMBALTA) PO SCH (08:12)
[2023-05-18] MEDS: FERROUS SULFATE 325MG TAB PO SCH (08:13)
[2023-05-18] MEDS: DOCUSATE SODIUM 100MG CAPSULE PO SCH (08:13)
[2023-05-18] MEDS: methocarbamoL 750 MG TAB PO SCH ×2 (08:13→12:25)
[2023-05-18] MEDS: OMEPRAZOLE 20MG CAP PO SCH (08:13)
[2023-05-18] MEDS: CEFUROXIME 500 MG TAB PO SCH (08:13)
[2023-05-18] MEDS ORDERED: CEFU50TA PO (11:11)
[2023-05-18] MEDS ORDERED: XARE10TA PO (11:11)
[2023-05-18] MEDS ORDERED: OXYC-517 PO (11:11)
== END 2023-05-18 12:50 | disposition home or self-care (01) ==
LOC: M SDC 09:15 → M RR INP 18:17 → M MS5PR 20:51
PROVIDERS: ADMIT Orthopaedic Surgery; ATTEND Orthopaedic Surgery
DX: M16.11 Unilateral primary osteoarthritis, right hip (principal); K21.9 Gastro-esophageal reflux disease without esophagitis; M79.7 Fibromyalgia; F41.9 Anxiety disorder, unspecified; F32.A Depression, unspecified; J45.909 Unspecified asthma, uncomplicated; Z88.5 Allergy status to narcotic agent; Z87.891 Personal history of nicotine dependence; Z98.84 Bariatric surgery status; Z79.51 Long term (current) use of inhaled steroids; Z79.899 Other long term (current) drug therapy
CPT/HCPCS: 27130; 36415; 72170; 76000; 80053; 85027; 87635; 88300; 96365; 96366; 96375; 97116; 97161; 97165; 97530; 97535; C1713; C1776; G0378; J0690; J1100; J1170; J1815; J2250; J2371; J2405; J2598; J2710; J2765; J3010; J3370; S2900

== ENCOUNTER 2023-05-22 09:50 | Outpatient (RCR) | payer OTHER, BC ==
[~2023-05-22 09:50] MED LIST changes: +C 50TAB PO; +CEFU50TA PO; +DULO30CA9 PO; +DULO60CA35 PO; +LORA-931 PO; +MUPI2OI NARES; +OMEP40CA5 PO; +OXYC-517 PO; -ROPIVA 100MG/KETOR 15MG/EPINEPHRINE 0.3MG IN NS 50ML SYRINGE PA ONE; -TRANEXAMIC ACID INJection 1,000 MG in NS 100 ML IV ONE; +XARE10TA PO; -ceFAZolin SOD 2 GM in IV 1 EA IV ONE
== END 2023-06-08 ==
LOC: M PT 09:50
PROVIDERS: ATTEND Orthopaedic Surgery
DX: M16.11 Unilateral primary osteoarthritis, right hip (principal)

== ENCOUNTER → 2023-05-29 | Outpatient (CLI) | payer OTHER, BC | LOC: M SOG 07:59 | PROVIDERS: ATTEND Orthopaedic Surgery | DX: Z47.1 Aftercare following joint replacement surgery (principal); Z96.641 Presence of right artificial hip joint ==

== ENCOUNTER → 2023-06-26 | Outpatient (CLI) | payer BC, OTHER | LOC: M SOG 08:04 | PROVIDERS: ATTEND Orthopaedic Surgery | DX: M25.551 Pain in right hip (principal); Z53.9 Procedure and treatment not carried out, unspecified reason ==

== ENCOUNTER → 2023-07-25 | Outpatient (CLI) | payer OTHER, BC | LOC: M SOG 08:00 | PROVIDERS: ATTEND Orthopaedic Surgery | DX: Z47.1 Aftercare following joint replacement surgery (principal); Z96.641 Presence of right artificial hip joint ==

== ENCOUNTER → 2023-10-30 | Outpatient (CLI) | payer OTHER | LOC: M SOG 08:22 | PROVIDERS: ATTEND Orthopaedic Surgery | DX: Z96.641 Presence of right artificial hip joint (principal) ==

== ENCOUNTER → 2024-05-01 | Outpatient (CLI) | payer OTHER, BC ==
[~2024-05-01] MED LIST changes: +GABA-1490 PO; -GABA600T4 PO
== END ==
LOC: M SOG 07:27
PROVIDERS: ATTEND Orthopaedic Surgery
DX: Z96.641 Presence of right artificial hip joint (principal); Z47.1 Aftercare following joint replacement surgery; Z53.9 Procedure and treatment not carried out, unspecified reason

== ENCOUNTER → 2024-07-01 | Outpatient (CLI) | payer OTHER, BC | LOC: M PLAIMG 12:15 | PROVIDERS: ATTEND Physician Assistant | DX: S52.514A Nondisplaced fracture of right radial styloid process, initial encounter for closed fracture (principal); Y93.9 Activity, unspecified; Y92.9 Unspecified place or not applicable ==

== ENCOUNTER → 2024-08-02 | Outpatient (CLI) | payer OTHER, BC | LOC: M SOG 15:31 | PROVIDERS: ATTEND Physician Assistant | DX: S52.501A Unspecified fracture of the lower end of right radius, initial encounter for closed fracture (principal); Y92.9 Unspecified place or not applicable; Y93.9 Activity, unspecified ==

== ENCOUNTER → 2024-08-23 | Outpatient (CLI) | payer OTHER, BC | LOC: M SOG 07:52 | PROVIDERS: ATTEND Physician Assistant | DX: Z53.9 Procedure and treatment not carried out, unspecified reason (principal) ==

== ENCOUNTER → 2024-09-03 | Outpatient (REF) | payer BC, MEDICARE | LOC: M SFHCCLAY 10:23 | PROVIDERS: ATTEND Nurse Practitioner Family | DX: Z53.9 Procedure and treatment not carried out, unspecified reason (principal) ==

== ENCOUNTER → 2024-09-04 | Outpatient (REF) | payer MEDICARE, BC ==
[2024-09-04 11:26] LABS: BASO # 0.1 10^3/uL (0.0-0.2); BASO % 0.9 % (0.0-1.0); EOS # 0.2 10^3/uL (0.0-0.5); EOS % 3.4 % (0.0-3.0); HEMATOCRIT 43.4 % (36.0-47.0); HEMOGLOBIN 14.3 g/dl (12.0-15.5); LYMPH # 1.6 10^3/uL (1.5-5.0); LYMPH % 29.5 % (24.0-44.0); MEAN CORPUSCULAR HEMOGLOBIN 31.1 pg (27.0-33.0); MEAN CORPUSCULAR HGB CONC 32.9 g/dl (32.0-36.5); MEAN CORPUSCULAR VOLUME 94.3 fl (80.0-96.0); MONO # 0.6 10^3/uL (0.0-0.8); MONO % 10.4 % (2.0-8.0); NEUTROPHILS % 55.8 % (36.0-66.0); PLATELET COUNT, AUTOMATED 229 10^3/uL (150-450); WHITE BLOOD COUNT 5.4 10^3/uL (4.0-10.0)
[2024-09-04 11:53] LABS: IRON (FE) 100 UG/DL (50-170)
[2024-09-04 11:54] LABS: ALBUMIN 3.8 G/DL (3.2-5.2); ALKALINE PHOSPHATASE 88 U/L (35-104); ALT/SGPT 21 U/L (7.0-40); AST/SGOT 11 U/L (<34); BILIRUBIN,TOTAL 0.3 MG/DL (0.3-1.2); BLOOD UREA NITROGEN 17 MG/DL (9-23); CALCIUM LEVEL 9.2 MG/DL (8.5-10.1); CARBON DIOXIDE LEVEL 27 MMOL/L (20-31); CHLORIDE LEVEL 108 MMOL/L (98-107); CHOLESTEROL LEVEL 223 MG/DL (<200); CHOLESTEROL RISK RATIO 3.97 (<5); CREATININE FOR GFR 0.58 MG/DL (0.55-1.30); FOLATE > 24.00 NG/ML (>5.4); FREE T4 1.15 NG/DL (0.89-1.76); GLOMERULAR FILTRATION RATE > 60.0 (>51); GLUCOSE, FASTING 164 MG/DL (60-100); HDL CHOLESTEROL 56.1 MG/DL (>40); LDL CHOLESTEROL 138.9 MG/DL (<100); NON-HDL-C 166.9 MG/DL; POTASSIUM SERUM 4.4 MMOL/L (3.5-5.1); SODIUM LEVEL 142 MMOL/L (136-145); THYROID STIMULATING HORMONE 2.913 uIU/ML (0.55-4.78); TOTAL PROTEIN 6.9 G/DL (5.7-8.2); TRIGLYCERIDES LEVEL 140 MG/DL (<150)
[2024-09-04 11:55] LABS: TOTAL 25(OH) VITAMIN D 31.2 NG/ML (20.0-100.0); VITAMIN B12 LEVEL 631 PG/ML (211-911)
[2024-09-04 12:42] LABS: HEMOGLOBIN A1c 6.5 % (4.0-6.0)
[2024-09-06 13:57] LABS: COPPER PLASMA 120 mcg/dL (70-175)
[2024-09-07 02:27] LABS: MERCURY LEVEL < 4 mcg/L (<=10)
== END ==
LOC: M SFHCCLAY 08:47
PROVIDERS: ATTEND Nurse Practitioner Family
DX: E11.9 Type 2 diabetes mellitus without complications (principal); D50.9 Iron deficiency anemia, unspecified; M16.12 Unilateral primary osteoarthritis, left hip; R25.2 Cramp and spasm; I10 Essential (primary) hypertension; E66.01 Morbid (severe) obesity due to excess calories; Z68.38 Body mass index [BMI] 38.0-38.9, adult; R25.3 Fasciculation; Z98.84 Bariatric surgery status; Z11.3 Encounter for screening for infections with a predominantly sexual mode of transmission; Z72.89 Other problems related to lifestyle; G60.3 Idiopathic progressive neuropathy; G25.89 Other specified extrapyramidal and movement disorders

== ENCOUNTER → 2024-10-03 | Outpatient (CLI) | payer MEDICARE, BC | LOC: M SOG 08:21 | PROVIDERS: ATTEND Orthopaedic Surgery | DX: M17.0 Bilateral primary osteoarthritis of knee (principal); M25.561 Pain in right knee ==